=== PATIENT | male | born 1965 | race Caucasian/White ===

== ENCOUNTER 2019-11-07 14:11 | Outpatient (REF) | payer MEDICARE, SELFPAY ==
[2019-11-07 22:07] LABS: ALT 21 U/L (16-63); AST 20 U/L (15-37); Alkaline Phosphatase 74 U/L (46-116); Anion Gap 10.1 mmol/L (3-11); BUN 13 mg/dL (7-18); Bilirubin, Total 0.4 mg/dL (0.2-1.0); CO2 30.9 mmol/L (21.0-32.0); CREATININE 1.17 mg/dL (0.70-1.30); Calculated LDL 106 mg/dL (<100); Chloride 103 mmol/L (98-107); Cholesterol 183 mg/dL (<200); Glucose 95 mg/dL (74-106); HDL Cholesterol 57 mg/dL (40-60); Sodium 144 mmol/L (136-145); Triglyceride 102 mg/dL (<150)
[2019-11-09 13:36] LABS: Hepatitis C Ab w Rflx HCV PCR Negative (Negative)
== END 2019-11-07 14:31 ==
LOC: NCHCN 14:11
PROVIDERS: Visit Provider Specialist/Technologist Athletic Trainer
DX: E78.00 Pure hypercholesterolemia, unspecified (principal); I10 Essential (primary) hypertension; F19.10 Other psychoactive substance abuse, uncomplicated
CPT/HCPCS: 80053; 80061; 86803

== ENCOUNTER 2021-04-22 09:51 | Outpatient (REF) | payer MEDICARE, SELFPAY ==
--- NOTE | 2021-04-22 09:14 | SKI_PTH ---
PATIENT: Raul Enriquez LOC: [facility] U#:[id number] AGE/SX: 55/M ROOM: RE04/22/[address]: ADILIA Chan : 1965 BED: DIS: 04/22/2021 SPEC #: [id number] RECD: 04/22/21 18:05 STATUS: RESHMA REQ #: [id number] LISSY: 04/22/21 09:[address]: Nam Roberson DEPT: Surgical Specimen RECD BY: Rakel Graff ENTERED: 04/22/21 18:05 SP TYPE: BRIAN COOK DR: Reed Barbour Tissues: 1 - SKIN BIOPSY(SHAVE/PUNCH) Procedures: SKIN LEVEL 4 Comments: [id number]
== END 2021-04-22 09:52 | disposition home or self-care (01) ==
LOC: LBN 09:51
PROVIDERS: PCP Family Medicine; Visit Provider Physician Assistant
DX: D18.01 Hemangioma of skin and subcutaneous tissue (principal)
CPT/HCPCS: 88305